=== PATIENT | female | born 1970 | race Asian ===

== ENCOUNTER 2024-02-13 19:18 | Emergency (ER) | payer OTHER ==
[2024-02-13 19:24] VITALS: BP 151/74; PULSE 92; RESP 18; TEMP 98.7; BMI 20.3
[2024-02-13] MEDS ORDERED: DEXAMETHASONE SOD PHOSPHATE 10 MG/1 ML VIAL ONE (20:12)
[2024-02-13] MEDS ORDERED: FAMOTIDINE 20 MG TABLET ONE (20:12)
[2024-02-13] MEDS: FAMOTIDINE 20 MG TABLET PO ONE (20:15)
[2024-02-13] MEDS: DEXAMETHASONE LIQUID 0.5 MG/5 ML PO ONE (20:15)
== END 2024-02-13 22:17 | disposition home or self-care (01) ==
LOC: JERFT 19:18
DX: L50.0 Allergic urticaria (principal); R23.2 Flushing; T78.1XXA Other adverse food reactions, not elsewhere classified, initial encounter
CPT/HCPCS: 99283-25